=== PATIENT | female | born 1945 | race Caucasian/White ===

== ENCOUNTER 2021-02-24 17:09 | Emergency (ER) | payer OTHER, BC ==
[2021-02-24 17:41] VITALS: TEMP 97.8; BMI 28.3
[2021-02-24] MEDS ORDERED: CASIRIVIMAB/IMDEVIMAB 10 ML in SODIUM CHLORIDE 100 ML IVPB ONE (18:33)
[2021-02-24 21:07] LABS: BASO % 5.8 % (0-2.0); EOS % 4.2 % (0-4.5); HEMATOCRIT 45.9 % (32.4-45.2); HEMOGLOBIN 15.5 GM/dL (10.7-15.3); LYMPH % 18.7 % (8-40); MCH 33.3 pg (25.7-33.7); MCHC 33.8 g/dl (32.0-36.0); MEAN CELL VOLUME 98.6 fl (80-96); MEAN PLT VOLUME 8.9 fl (7.5-11.1); MONO % 14.3 % (3.8-10.2); PLATELET COUNT 186 10^3/uL (134-434); RBC 4.66 M/mm3 (3.60-5.2); RDW 15.9 % (11.6-15.6); WHITE BLOOD COUNT 5.2 K/mm3 (4.0-10.0)
[2021-02-24 21:32] LABS: ALBUMIN 3.7 g/dl (3.4-5.0); BLOOD UREA NITROGEN 13.5 mg/dL (7-18)
[2021-02-24 21:35] LABS: CREATININE 0.7 mg/dL (0.55-1.3)
[2021-02-24 21:36] LABS: BILIRUBIN,TOTAL 0.5 mg/dL (0.2-1); TOT PROT 6.7 g/dl (6.4-8.2)
[2021-02-24 21:53] LABS: ANISOCYTOSIS 2+; MACROCYTOSIS 0; OVALOCYTE 1+; PLATELET ESTIMATE NORMAL
[2021-02-24 23:56] VITALS: BP 184/76; PULSE 77
== END 2021-02-25 02:12 ==
LOC: JCOVINFU 17:09 → JER 17:09
DX: U07.1 COVID-19 (principal)
CPT/HCPCS: 36415; 71046-TC-FY; 71250-TC; 80053; 85025; 99285-25; Q0240